=== PATIENT | female | born 1965 | race Caucasian/White ===

== ENCOUNTER → 2020-05-30 | Outpatient (CLI) | payer OTHER ==
[~2020-05-30] MED LIST: CIPRO500 MG PO; FLAGYL500 MG PO
[2020-05-30 11:10] LABS: HEMOGLOBIN 13.8 gm/dl (12.3-15.3); RED BLOOD COUNT 4.33 M/UL (4.00-5.10); WHITE BLOOD COUNT 6.8 K/UL (4.5-11.0)
[2020-05-30 11:40] LABS: BUN/CREATININE RATIO 13 (0-10)
[2020-05-31 08:14] LABS: RHEUMATOID ARTHRITIS FACTOR <10.0 IU/mL (0.0-13.9); VITAMIN D, 25-HYDROXY 25.6 ng/mL (30.0-100.0)
[2020-05-31 23:07] LABS: CCP ANTIBODIES IGG/IGA 6 units (0-19)
== END ==
LOC: RAD 09:59
PROVIDERS: Nurse Practitioner Family
DX: M25.542 Pain in joints of left hand (principal); M25.541 Pain in joints of right hand; R76.8 Other specified abnormal immunological findings in serum; R53.83 Other fatigue; D89.9 Disorder involving the immune mechanism, unspecified
CPT/HCPCS: 36415; 73130; 80053; 81001; 82570; 83520; 84156; 85025; 86140; 86200; 86431

== ENCOUNTER → 2021-01-05 | Outpatient (CLI) | payer OTHER | LOC: SLEEP 11:01 | DX: G47.33 Obstructive sleep apnea (adult) (pediatric) (principal) | CPT/HCPCS: 95810 ==

== ENCOUNTER → 2021-04-16 | Outpatient (CLI) | payer OTHER ==
[2021-04-16 09:40] LABS: HEMOGLOBIN 14.6 gm/dl (12.3-15.3); RED BLOOD COUNT 4.53 M/UL (4.00-5.10)
[2021-04-17 08:14] LABS: BILIRUBIN, TOTAL 0.4 mg/dL (0.0-1.2); CALCIUM, SERUM 9.8 mg/dL (8.7-10.2); CREATININE, SERUM 0.92 mg/dL (0.57-1.00); GLOBULIN, TOTAL 2.3 g/dL (1.5-4.5); POTASSIUM, SERUM 3.9 mmol/L (3.5-5.2); PROTEIN, TOTAL, SERUM 6.9 g/dL (6.0-8.5)
== END ==
LOC: LAB 08:28
PROVIDERS: Internal Medicine
DX: Z51.81 Encounter for therapeutic drug level monitoring (principal); M06.09 Rheumatoid arthritis without rheumatoid factor, multiple sites
CPT/HCPCS: 36415; 80053; 85025; 85652; 86140